=== PATIENT | female | born 1940 | race African-American/Black ===

== ENCOUNTER 2017-10-02 01:12 | Emergency (ER) | payer OTHER ==
[~2017-10-02] VITALS: Ht 160 cm; Wt 76.2 kg
[2017-10-02 01:29] VITALS: BP 142/83
--- NOTE | 2017-10-02 01:44 | ED GENERAL ADULT ---
History of Present Illness General Chief Complaint: General Adult Stated Complaint: PER PT C/C "BODY TREMBLING" Source: patient Exam Limitations: no limitations Vital Signs & Intake/Output Vital Signs & Intake/Output Vital Signs Date Time Temp Pulse Resp B/P B/P Pulse O2 O2 Flow FiO2 Mean Ox Delivery Rate 10/02 0459 98.2 84 16 94 Room Air Room Air 10/02 0229 101.5 10/02 0158 98 Room Air 10/02 0129 103.7 110 18 142/83 98 Allergies Coded Allergies: No Known Allergies (10/02/17) Reconcile Medications Ciprofloxacin HCl (Cipro) 500 MG TABLET 1 TAB PO BID uti Triage Note: PT FROM HOME C/O CHILLS, FEVER 103.7 IN TRIAGE. PT DENIES N/V/D, CP, SOB, ARM NUMBNESS/TINGLING, BACK OR JAW PAIN. PT STATES SHE MEDICATED WITH TYLENOL 975MG AROUND 0030. Triage Nurses Notes Reviewed? yes Onset: Gradual Duration: hour(s): Timing: recent history Injury Environment: home Severity: moderate Modifying Factors: Improves With: rest. Associated Symptoms: fever, rigors HPI: 77 yo woman h/o htn and diabetes, presents with chills. She reports feeling unwell yesterday afternoon, had a fever, associated with increased urination, buring, dysuria. This AM, she developed rigors, "I started shaking all over... could barely speak... a high fever." No cough, phlegm, dyspnea, diarrhea, abdominal pain. Past History Travel History Traveled to [place] past 21 day No Medical History Any Pertinent Medical History? see below for history Cardiovascular: hypertension Endocrine: diabetes Surgical History Surgical History: none Psychosocial History What is your primary language Samoan Tobacco Use: Never used Family History Hx Contributory? No Review of Systems Review of Systems Constitutional: Reports: no symptoms. EENTM: Reports: no symptoms. Respiratory: Reports: no symptoms. Cardiovascular: Reports: no symptoms. GI: Reports: no symptoms. Genitourinary: Reports: no symptoms. Musculoskeletal: Reports: no symptoms. Skin: Reports: no symptoms. Neurological/Psychological: Reports: no symptoms. Hematologic/Endocrine: Reports: no symptoms. Immunologic/Allergic: Reports: no symptoms. All Other Systems: Reviewed and Negative Physical Exam Physical Exam General Appearance: well developed/nourished, moderate distress Head: atraumatic Eyes: Bilateral: normal appearance. Ears, Nose, Throat: normal pharynx, normal ENT inspection Neck: normal inspection, supple, full range of motion Respiratory: normal breath sounds, chest non-tender, no respiratory distress, quiet respiration, lungs clear Cardiovascular: regular rate/rhythm Gastrointestinal: normal bowel sounds, soft, mild suprapubic tenderness Back: normal inspection Extremities: normal inspection, normal capillary refill Neurologic/Psych: no motor/sensory deficits, awake, alert, oriented x 3 Skin: intact, normal color, warm/dry Core Measures ACS in differential dx? No CVA/TIA Diagnosis: No Sepsis Present: Yes Sepsis Focused Exam Completed? Yes ED Sepsis Exam Date of Focused Sepsis Exam: 10/02/17 Time of Focused Sepsis Exam: 238 Sepsis Cardiac Exam: Tachycardia Sepsis Resp Exam: CTA Sepsis Cap Refill Exam: <2 Sec Sepsis Peripheral Pulse Exam: Normal Sepsis Peripheral Pulse Location: Radial Sepsis Skin Color Exam: Normal for Ethnicity Skin Temp/Moisture Exam: Warm/Dry Progress Differential Diagnoses I considered the following diagnoses in my evaluation of the patient: pyelo vs other Plan of Care: Orders Procedure Date/time Status BLOOD CULTURE 10/02 224 Active CULTURE,URINE 10/02 221 Active BLOOD CULTURE 10/02 221 Active Add-on Test (ER Only) 10/02 220 Active LACTIC ACID 10/02 154 Complete URINALYSIS 10/02 150 Complete TROPONIN LEVEL 10/02 138 Complete LIPASE 10/02 138 Complete HEPATIC FUNCTION PANEL 10/02 138 Complete D-DIMER 10/02 138 Complete CBC WITHOUT DIFFERENTIAL 10/02 138 Complete BASIC METABOLIC PANEL 10/02 138 Complete AMYLASE 10/02 138 Complete EKG 10/02 138 Active Current Medications Sig/Brandyn Start time Last Medication Dose Stop Time Status Admin Acetaminophen 975 MG ONCE ONE 10/02 0515 UNVr (Tylenol) 10/02 0516 Acetaminophen 1,000 MG ONCE ONE 10/02 0230 CAN (Ofirmev) 10/02 0244 N/A 1 UNIT (No Carrier) Laboratory Tests 10/02/17 0226: Urine Color YEL, Urine Clarity HAZY H, Urine pH 7.5, Ur Specific Vill[place] 1.015, Urine Protein 100 H, Urine Ketones NEG, Urine Nitrite POS H, Urine Bilirubin NEG, Urine Urobilinogen 0.2, Ur Leukocyte Esterase LARGE H, Ur Microscopic SEDIMENT EXAMINED, Urine RBC >75 H, Urine WBC > 75 H, Ur Epithelial Cells RARE , Urine Bacteria FEW H, Urine Hemoglobin LARGE H, Urine Glucose NEG 10/02/17 0155: Anion Gap 12, Estimated GFR 44 L, BUN/Creatinine Ratio 13.3, Glucose 188 H, Lactic Acid 1.8, Calcium 9.5, Total Bilirubin 0.7, Direct Bilirubin 0.1, AST 15, ALT 22, Alkaline Phosphatase 80, Troponin I < 0.01, Total Protein 7.0, Albumin 4.0, Amylase 120 H, Lipase 185, D-Dimer High Sensitivty 511 H, CBC w Diff NO MAN DIFF REQ, RBC 3.89 L, MCV 83.7, MCH 27.9, MCHC 33.3, RDW 14.6 H, MPV 8.1, Gran % 90.2 H, Lymphocytes % 6.4 L, Monocytes % 3.0, Eosinophils % 0.4, Basophils % 0, Absolute Granulocytes 8.9 H, Absolute Lymphocytes 0.6 L, Absolute Monocytes 0.3, Absolute Eosinophils 0, Absolute Basophils 0 Microbiology 10/02 0247 BLOOD: Blood Culture - RECD 10/02 0240 BLOOD: Blood Culture - RECD 10/02 022 URINE ROUT: Urine Culture - RECD Diagnostic Imaging: Viewed by Me: CT Scan. Discussed w/RAD: CT Scan. Radiology Impression: PATIENT: EDWARDO FERNANDO PRESENT AGE: 77 PATIENT ACCOUNT NO: [id number] : 41 LOCATION: [facility] ORDERING PHYSICIAN: Noah Ramirez MD SERVICE DATE: 10/02/17 EXAM TYPE: CAT - CT ABD & PELVIS W IV CONTRAST; CTA CHEST-PULMONARY EMBOLISM EXAMINATION: 1. CTA chest: 2. CT ABDOMEN AND PELVIS WITH CONTRAST CLINICAL INFORMATION: Sepsis. Positive d-dimer. COMPARISON: None. TECHNIQUE: A noncontrast localizer was performed, followed by the administration of 125 mL Omnipaque [address] of the chest was then performed. Coronal and sagittal reformatted and 3-D technique MIP images of the chest were completed at the CT scanner and reviewed on the PACS workstation. No adverse effects were reported. Images were then performed through the abdomen and pelvis. Coronal and sagittal reformatted images performed at CT scanner by technologist. DLP: 931.71 mGy-cm. FINDINGS: 1. CTA CHEST; VASCULAR: The main pulmonary artery, secondary and tertiary branches of the pulmonary artery are normally opacified with no evidence of pulmonary embolism. The aorta and great vessels are unremarkable. MEDIASTINUM: No mediastinal mass. No significant lymphadenopathy. There is no pericardial effusion. LUNGS: The lungs are clear. No nodule or infiltrate. Central bronchial airways open. FLUID: There is no pericardial effusion. There is no pleural effusion. AXILLA: No significant lymphadenopathy. 2. CT SCAN ABDOMEN PELVIS: LIVER, GALLBLADDER, AND BILIARY TREE: The liver is normal in size, shape, and attenuation. No focal hepatic lesion or biliary ductal dilatation is present. There are multiple small calcified gallstones in the gallbladder. No gallbladder wall thickening or fluid around the gallbladder. No bile duct dilatation. PANCREAS: Unremarkable. SPLEEN: Unremarkable. ADRENAL GLANDS: Unremarkable. KIDNEYS AND URETERS: Normal enhancement of the cortex of both kidneys. No evidence of pyelonephritis. No edema around the kidneys. There is no renal or ureteral calculi. No hydronephrosis. There is a small cortical cyst at the midpole of the left kidney. BLADDER: Unremarkable. GASTROINTESTINAL TRACT: Large volume of stool throughout the colon. No acute change of the bowel. No bowel obstruction. No bowel wall thickening or edema. There is stool in the distal terminal ileum likely from an incompetent ileocecal valve. The cecum lies high in the right upper quadrant underneath the liver. The appendix is not seen. There is no inflammation the mesentery. MESENTERY: No inflammation. No free air or free fluid. ABDOMINAL WALL: There are fat-containing bilateral inguinal hernias. LYMPH NODES: Normal. VASCULAR: Unremarkable. PELVIC VISCERA: Uterus is anteverted. No adnexal abnormality. OSSEOUS STRUCTURES: Unremarkable. IMPRESSION : 1. No evidence of pulmonary embolism. No acute change of the chest. 2. Normal CT of the kidneys ureter and bladder. 3. Cholelithiasis. No bile duct dilatation. 4. Large volume of stool in colon. No acute change of the bowel. DICTATED BY: Roger Flores MD DATE/TIME DICTATED:10/02/17328 BILL BOARD POSTER :ANTONIO DATE/TIME TRANSCRIBED:10/02/17328 CONFIDENTIAL, DO NOT COPY WITHOUT APPROPRIATE AUTHORIZATION. <Electronically signed in Other Vendor System> SIGNED BY: Roger Flores MD 10/02/17 0342 Initial ED EKG: nsr, non specific t wave changes. Departure Departure Disposition: HOME OR SELF CARE Condition: Stable Clinical Impression Primary Impression: UTI (urinary tract infection) Referrals: Unknown (PCP/Family) Departure Forms: Customer Survey General Discharge Information Prescriptions: Current Visit Scripts Ciprofloxacin HCl (Cipro) 1 TAB PO BID #20 TAB Comments 10/02/17, 3:59am... pt feeling better after iv fluids... she would prefer to go home... will re-evaluate after completion of the fluid bolus. 10/02/2017 5:32:22 AM... Pt is feeling well, afebrile. She feels comfortable going home. I discussed with her to follow up with her PMD and to return to the ED if she does not feel well. Pt to take cipro 500mg bid x 10 days. close follow up advised. Critical Care Note Critical Care Note Critical Care Time: non-applicable
[2017-10-02 02:04] LABS: ABSOLUTE BASOPHIL COUNT 0 /CUMM (0.0-0.2); ABSOLUTE EOSINOPHIL COUNT 0 /CUMM (0.0-0.7); ABSOLUTE GRANULOCYTE CT 8.9 /CUMM (1.4-6.5); ABSOLUTE LYMPH COUNT 0.6 /CUMM (1.2-3.4); ABSOLUTE MONOCYTE COUNT 0.3 /CUMM (0.10-0.60); BASOPHIL % 0 % (0.0-2.0); EOSINOPHIL % 0.4 % (0-5); GRANULOCYTE % 90.2 % (42.2-75.2); HEMATOCRIT 32.6 % (37-47); MEAN CORPUSCULAR HGB 27.9 PG (27.0-31.0); MEAN CORPUSCULAR HGB CONC 33.3 G/DL (33.0-37.0); MEAN CORPUSCULAR VOLUME 83.7 FL (81.0-99.0); MEAN PLATELET VOLUME 8.1 FL (7.4-10.4); PLATELET COUNT 260 /CUMM (130-400); RBC DISTRIBUTION WIDTH 14.6 % (11.5-14.5); RED BLOOD CELL CT 3.89 /CUMM (4.20-5.40)
--- NOTE | 2017-10-02 02:31 | RADIOLOGY REPORT ---
EXAMINATION: XR PORTABLE CHEST CLINICAL INFORMATION: Chest pain. COMPARISON: None TECHNIQUE: Portable frontal view of the chest was obtained. 1:43 AM FINDINGS: No significant abnormality is noted involving the heart, lungs, mediastinum, bony thorax or soft tissues. IMPRESSION: Unremarkable examination.
[2017-10-02 02:46] LABS: WHITE BLOOD CELL COUNT 9.9 /CUMM (4.8-10.8)
--- NOTE | 2017-10-02 03:42 | CT SCAN REPORT ---
EXAMINATION: 1. CTA chest: 2. CT ABDOMEN AND PELVIS WITH CONTRAST CLINICAL INFORMATION: Sepsis. Positive d-dimer. COMPARISON: None. TECHNIQUE: A noncontrast localizer was performed, followed by the administration of 125 mL Omnipaque [address] of the chest was then performed. Coronal and sagittal reformatted and 3-D technique MIP images of the chest were completed at the CT scanner and reviewed on the PACS workstation. No adverse effects were reported. Images were then performed through the abdomen and pelvis. Coronal and sagittal reformatted images performed at CT scanner by technologist. DLP: 931.71 mGy-cm. FINDINGS: 1. CTA CHEST; VASCULAR: The main pulmonary artery, secondary and tertiary branches of the pulmonary artery are normally opacified with no evidence of pulmonary embolism. The aorta and great vessels are unremarkable. MEDIASTINUM: No mediastinal mass. No significant lymphadenopathy. There is no pericardial effusion. LUNGS: The lungs are clear. No nodule or infiltrate. Central bronchial airways open. FLUID: There is no pericardial effusion. There is no pleural effusion. AXILLA: No significant lymphadenopathy. 2. CT SCAN ABDOMEN PELVIS: LIVER, GALLBLADDER, AND BILIARY TREE: The liver is normal in size, shape, and attenuation. No focal hepatic lesion or biliary ductal dilatation is present. There are multiple small calcified gallstones in the gallbladder. No gallbladder wall thickening or fluid around the gallbladder. No bile duct dilatation. PANCREAS: Unremarkable. SPLEEN: Unremarkable. ADRENAL GLANDS: Unremarkable. KIDNEYS AND URETERS: Normal enhancement of the cortex of both kidneys. No evidence of pyelonephritis. No edema around the kidneys. There is no renal or ureteral calculi. No hydronephrosis. There is a small cortical cyst at the midpole of the left kidney. BLADDER: Unremarkable. GASTROINTESTINAL TRACT: Large volume of stool throughout the colon. No acute change of the bowel. No bowel obstruction. No bowel wall thickening or edema. There is stool in the distal terminal ileum likely from an incompetent ileocecal valve. The cecum lies high in the right upper quadrant underneath the liver. The appendix is not seen. There is no inflammation the mesentery. MESENTERY: No inflammation. No free air or free fluid. ABDOMINAL WALL: There are fat-containing bilateral inguinal hernias. LYMPH NODES: Normal. VASCULAR: Unremarkable. PELVIC VISCERA: Uterus is anteverted. No adnexal abnormality. OSSEOUS STRUCTURES: Unremarkable. IMPRESSION: 1. No evidence of pulmonary embolism. No acute change of the chest. 2. Normal CT of the kidneys ureter and bladder. 3. Cholelithiasis. No bile duct dilatation. 4. Large volume of stool in colon. No acute change of the bowel.
[2017-10-02] MEDS ORDERED: CIPRO500 M1 PO (04:00)
== END 2017-10-02 06:38 ==
LOC: ERH 01:12
PROVIDERS: Pediatrics
DX: N39.0 Urinary tract infection, site not specified (principal); R30.0 Dysuria; E11.9 Type 2 diabetes mellitus without complications; I10 Essential (primary) hypertension
CPT/HCPCS: 71045; 74177; 81001; 87040; 87086; 93005; 93010; 96361; 96374; 96375; J0696; J1885